=== PATIENT | male | born 1960 | race African-American/Black ===

== ENCOUNTER 2018-09-02 10:51 | Emergency (ER) | payer MEDICAID ==
[~2018-09-02] VITALS: Ht 175.3 cm; Wt 77.5 kg
[~2018-09-02 10:51] MED LIST: CHOL100053 PO; CILO100T PO; CLOP75TA16 PO; CYPR4SYR PO; DIAZ10TA PO; HYDR-4009 PO; LIP40 PO; LISI30TA36 PO; MULT-1146 PO; PROP20TA7 PO
[2018-09-02] MEDS ORDERED: PROP20TA7 MT (11:38)
[2018-09-02] MEDS ORDERED: LATA2.5D2 EACHEYE (11:38)
[2018-09-02] MEDS ORDERED: ONDANSETRON HCL 4MG/2ML INJ IV STA (12:50)
[2018-09-02] MEDS ORDERED: SODIUM CHLORIDE 0.9% 1,000 ML IV ONE (12:50)
[2018-09-02] MEDS ORDERED: MORPHINE SULFATE 4 MG/ML CPJ (NOT FOR IM USE) IV ONE (13:00)
[2018-09-02 14:04] LABS: HEMATOCRIT. 43.3 % (42.0-52.0); HEMOGLOBIN. 14.2 g/dL (14.0-18.0); MEAN CORPUSCULAR HEMOGLOBIN 33.8 pg (28.0-32.0); MEAN CORPUSCULAR VOLUME 102.6 fL (80.0-94.0); MEAN PLATELET VOLUME 9.1 fl (7.4-10.4); PLATELET 202 x1000/uL (130-400); RED BLOOD CELL COUNT 4.22 mill/uL (4.7-6.1); RED CELL DISTRIBUTION WIDTH 14.2 % (11.6-14.6)
[2018-09-02 14:08] LABS: PROTHROMBIN TIME 10.2 sec (9.1-11.1)
[2018-09-02 14:13] LABS: CHLORIDE 108 mEq/L (98-107)
[2018-09-02] MEDS ORDERED: DIPHENHYDRAMINE 50MG/ML VIAL IV ONE (14:15)
[2018-09-02] MEDS ORDERED: KETOROLAC 30MG/ML VIAL IV ONE (14:15)
[2018-09-02 14:30] LABS: PLATELET ESTIMATE NORMAL
[2018-09-02] MEDS ORDERED: DIPHENHYDRAMINE 50MG/ML VIAL ONE (14:43)
[2018-09-02 17:20] VITALS: BP 152/88
== END 2018-09-02 17:21 | disposition home or self-care (01) ==
LOC: ER 12:09
DX: K52.9 Noninfective gastroenteritis and colitis, unspecified (principal); I10 Essential (primary) hypertension; F17.200 Nicotine dependence, unspecified, uncomplicated; Z88.6 Allergy status to analgesic agent; Z91.041 Radiographic dye allergy status; Z86.718 Personal history of other venous thrombosis and embolism; Z79.01 Long term (current) use of anticoagulants; Z98.62 Peripheral vascular angioplasty status
CPT/HCPCS: 36415; 80053; 83690; 85025; 85610; 96361; 96374; 96375; 99283; J1200; J1885; J2270; J2405; J7030

== ENCOUNTER 2019-02-26 16:14 | Emergency (ER) | payer MEDICAID ==
[~2019-02-26] VITALS: Ht 175.3 cm; Wt 74.0 kg
[~2019-02-26 16:14] MED LIST changes: -CLOP75TA16 PO; +CLOP75TA4 PO; +LATA2.5D2 EACHEYE; +PROP20TA7 MT
[2019-02-26 17:15] VITALS: BP 158/86
== END 2019-02-26 21:41 | disposition left against medical advice (07) ==
LOC: ER 18:02
DX: Z53.21 Procedure and treatment not carried out due to patient leaving prior to being seen by health care provider (principal)

== ENCOUNTER 2019-04-17 06:54 | Inpatient (IN) | payer MEDICAID ==
[~2019-04-17] VITALS: Ht 175.3 cm; Wt 73.9 kg
[~2019-04-17 06:54] MED LIST changes: +BRIM5DRO6 EACHEYE; -CLOP75TA4 PO; +DIPY25TA34 MT; -PROP20TA7 MT; -PROP20TA7 PO
[2019-04-17] MEDS ORDERED: TRAMADOL 50MG TABLET PO ONE (07:30)
[2019-04-17 08:45] LABS: BASOPHILS % 1.1 % (0.0-2.0); EOSINOPHILS % 3.1 % (0.0-5.0); HEMATOCRIT. 40.4 % (42.0-52.0); HEMOGLOBIN. 13.7 g/dL (14.0-18.0); LYMPHOCYTES % 45.4 % (20.0-50.0); MEAN CORPUSCULAR HEMOGLOBIN 35.5 pg (28.0-32.0); MEAN CORPUSCULAR VOLUME 104.2 fL (80.0-94.0); MEAN PLATELET VOLUME 9.7 fl (7.4-10.4); MONOCYTES % 11.4 % (2.0-8.0); PLATELET 179 x1000/uL (130-400); RED BLOOD CELL COUNT 3.87 mill/uL (4.7-6.1); RED CELL DISTRIBUTION WIDTH 13.8 % (11.6-14.6)
[2019-04-17 08:52] LABS: PROTHROMBIN TIME 10.1 sec (9.6-11.0)
[2019-04-17 09:11] LABS: CHLORIDE 104 mEq/L (98-107)
[2019-04-17] MEDS ORDERED: DEXT 5%/0.45% NACL 1000ML 1,000 ML IV SCH (10:20)
[2019-04-17] MEDS ORDERED: DOCUSATE SODIUM 100MG CAPSULE PO PRN (11:00)
[2019-04-17] MEDS ORDERED: ONDANSETRON HCL 4MG/2ML INJ IV PRN (11:00)
[2019-04-17] MEDS ORDERED: HYDROCODONE/ACETAMINOPHEN 5/325MG TABLET PO PRN (11:00)
[2019-04-17] MEDS ORDERED: MAGNESIUM/ALUMINUM HYDROXIDE/SIMETHICONE 30ML UDC PO PRN (11:00)
[2019-04-17] MEDS ORDERED: GUAIFENESIN 200MG/10ML SUGAR FREE UDC PO PRN (11:00)
[2019-04-17] MEDS ORDERED: ACETAMINOPHEN 325MG TABLET PO PRN (11:00)
[2019-04-17] MEDS ORDERED: CLONIDINE 0.1MG TABLET PO PRN (11:00)
[2019-04-17] MEDS ORDERED: DIPHENHYDRAMINE 50MG/ML VIAL IV PRN (11:00)
[2019-04-17] MEDS ORDERED: IPRATROPIUM/ALBUTEROL 0.5-3(2.5)MG/3ML NEB HHN PRN (11:00)
[2019-04-17 11:14] LABS: PHOSPHORUS 3.5 mg/dL (2.5-4.9)
[2019-04-17 13:10] VITALS: BP 150/68
[2019-04-17 13:11] VITALS: BP 150/68
[2019-04-17] MEDS ORDERED: BACITRACIN 15GM TUBE TOP ONE ×2 (13:13→14:45)
[2019-04-17] MEDS ORDERED: LIDOCAINE HCL 1% 20ML VIAL (Pyxis) INJ ONE ×3 (13:14→15:25)
[2019-04-17] MEDS ORDERED: BACITRACIN 50,000 UNITS/VIAL ONE ×2 (13:14→14:47)
[2019-04-17] MEDS ORDERED: THROMBIN (BOVINE) 5000 UNITS/VIAL TOP ONE ×3 (13:14→17:30)
[2019-04-17] MEDS ORDERED: BUPIVACAINE HCL/PF 0.5% (5MG/ML) 10ML ONE ×3 (13:14→14:47)
[2019-04-17] MEDS ORDERED: HEPARIN SODIUM 1,000 UNIT/1ML VIAL IV ONE ×2 (13:14→14:46)
[2019-04-17] MEDS ORDERED: MIDAZOLAM HCL 2 MG/2 ML VIAL ONE (15:52)
[2019-04-17] MEDS ORDERED: PROPOFOL 200MG/20ML VIAL IV ONE (15:52)
[2019-04-17] MEDS ORDERED: FENTANYL CITRATE/PF 50MCG/ML 2ML VIAL ONE (15:52)
[2019-04-17] MEDS ORDERED: LIDOCAINE HCL/PF 1% 10 MG/ML 5ML VIAL ONE (15:53)
[2019-04-17] MEDS ORDERED: CEFAZOLIN SODIUM 1000MG/VIAL ONE (15:53)
[2019-04-17] MEDS ORDERED: ONDANSETRON HCL 4MG/2ML INJ ONE (17:24)
[2019-04-17] MEDS ORDERED: HEPARIN 1000 UNITS/ML 10ML ONE (18:03)
[2019-04-17] MEDS ORDERED: METOCLOPRAMIDE HCL 10MG/2ML VIAL IV PRN (18:30)
[2019-04-17] MEDS ORDERED: MEPERIDINE HCL/PF 25MG/ML CPJ IV PRN (18:30)
[2019-04-17] MEDS ORDERED: HYDROMORPHONE HCL/PF 2MG/ML CPJ IV PRN (18:30)
[2019-04-17 20:00] VITALS: BP 176/106
[2019-04-17] MEDS: MORPHINE SULFATE 2 MG/ML CPJ (NOT FOR IM USE) IV PRN (20:52)
[2019-04-17 23:30] VITALS: BP 146/85
[2019-04-18] MEDS: MORPHINE SULFATE 2 MG/ML CPJ (NOT FOR IM USE) IV PRN ×6 (01:13→15:05)
[2019-04-18] MEDS: SODIUM CHLORIDE 0.9% 1,000 ML IV SCH ×2 (01:16→13:35)
[2019-04-18 04:00] VITALS: BP 128/89
[2019-04-18 08:19] LABS: BASOPHILS % 0.5 % (0.0-2.0); EOSINOPHILS % 1.4 % (0.0-5.0); HEMATOCRIT. 35.8 % (42.0-52.0); HEMOGLOBIN. 12.2 g/dL (14.0-18.0); LYMPHOCYTES % 30.8 % (20.0-50.0); MEAN CORPUSCULAR HEMOGLOBIN 35.2 pg (28.0-32.0); MEAN CORPUSCULAR VOLUME 103.3 fL (80.0-94.0); MEAN PLATELET VOLUME 9.9 fl (7.4-10.4); MONOCYTES % 12.1 % (2.0-8.0); NEUTROPHILS % 55.2 % (40.0-76.0); PLATELET 164 x1000/uL (130-400); RED BLOOD CELL COUNT 3.46 mill/uL (4.7-6.1); RED CELL DISTRIBUTION WIDTH 13.6 % (11.6-14.6)
[2019-04-18 08:30] VITALS: BP 152/87
[2019-04-18 08:32] LABS: VITAMIN B12 SERUM 538 pg/mL (211-911)
[2019-04-18 09:12] LABS: FOLIC ACID (FOLATE) SERUM > 20.00 ng/mL (>5.38)
[2019-04-18 10:54] LABS: CHLORIDE 109 mEq/L (98-107)
[2019-04-18 11:03] LABS: LDL CHOLESTEROL 95 mg/dL (5-100)
[2019-04-18 11:05] LABS: HDL CHOLESTEROL 29 mg/dL (40-59)
[2019-04-18 12:00] VITALS: BP 160/74
[2019-04-18 16:00] VITALS: BP 160/90
[2019-04-18 16:18] VITALS: BP 148/74
== END 2019-04-18 17:20 | disposition home or self-care (01) | DRG 181 ==
LOC: ER 07:11 → 5WST 10:35 → EDBEDREQ 10:39 → ENRESERV 12:21
PROVIDERS: ADMIT Internal Medicine; ATTEND Internal Medicine
PROC: 04CL0ZZ Extirpation of Matter from Left Femoral Artery, Open Approach (ICD-10-PCS; principal; 2019-04-17)
PROC: 04UL0JZ Supplement Left Femoral Artery with Synthetic Substitute, Open Approach (ICD-10-PCS; 2019-04-17)
PROC: 041L0ZL Bypass Left Femoral Artery to Popliteal Artery, Open Approach (ICD-10-PCS; 2019-04-17)
DX: T82.868A Thrombosis due to vascular prosthetic devices, implants and grafts, initial encounter (principal); I70.222 Atherosclerosis of native arteries of extremities with rest pain, left leg; I11.9 Hypertensive heart disease without heart failure; D53.9 Nutritional anemia, unspecified; E78.5 Hyperlipidemia, unspecified; R74.0 Nonspecific elevation of levels of transaminase and lactic acid dehydrogenase [LDH]; F17.200 Nicotine dependence, unspecified, uncomplicated; H40.9 Unspecified glaucoma; Y83.8 Other surgical procedures as the cause of abnormal reaction of the patient, or of later complication, without mention of misadventure at the time of the procedure; N18.9 Chronic kidney disease, unspecified; I70.90 Unspecified atherosclerosis; I99.8 Other disorder of circulatory system; Z88.6 Allergy status to analgesic agent; Y92.89 Other specified places as the place of occurrence of the external cause; Z79.899 Other long term (current) drug therapy; Z91.041 Radiographic dye allergy status
CPT/HCPCS: 36415; 71045; 76700; 80061; 82607; 82746; 83036; 83735; 84100; 84443; 84484; 88304; 88311; 93005; 93922; 97162; 97166; 99285; J0690; J1200; J1644; J2175; J2250; J2270; J2405; J2704; J3010; J3490